=== PATIENT | male | born 1950 | race Hispanic/Latino ===

== ENCOUNTER 2018-02-08 11:30 | Emergency (ER) | payer SELFPAY ==
[2018-02-08 12:17] LABS: Hematocrit 25.3 % (39.6-49.0); MCH 25.2 pg (27.0-35.0); MCV 79.5 fL (80-100); MPV 8.2 fL (7.6-11.3); RBC Red Blood Cell Count 3.18 M/uL (4.33-5.43)
[2018-02-08 12:24] LABS: ALT/SGPT 34 U/L (12-78); AST/SGOT 119 U/L (15-37); Albumin 3.3 g/dL (3.4-5.0); Alkaline Phosphatase 181 U/L (45-117); BUN Blood Urea Nitrogen 4 mg/dL (7-18); Bicarbonate 26 mmol/L (21-32); Bilirubin Direct 0.2 mg/dL (0-0.2); Bilirubin Total 0.4 mg/dL (0.2-1.0); Glucose Level 119 mg/dL (74-106); Lipase 174 U/L (73-393); Potassium 3.3 mmol/L (3.5-5.1); Protein, Total 7.9 g/dL (6.4-8.2); Sodium Level 136 mmol/L (136-145); Troponin (Emerg Dept Use Only) < 0.02 ng/mL (0.0-0.045)
--- NOTE | 2018-02-08 12:33 | RAD REPORT ---
EXAM DESCRIPTION: CT - Head Brain Wo Cont - 02/08/2018 12:13 pm CLINICAL HISTORY: CONFUSED Drowsiness COMPARISON: No comparisons TECHNIQUE: All CT scans are performed using dose optimization technique as appropriate and may inclu de automated exposure control or mA/KV adjustment according to patient size. FINDINGS: No intracranial hemorrhage, hydrocephalus or extra-axial fluid collection.Advanced general ized brain atrophy is present with moderate periventricular and deep white matter chronic microvascul ar ischemic changes.No areas of brain edema or evidence of midline shift. The paranasal sinuses and mastoids are clear. The calvarium is intact. IMPRESSION: No acute intracranial abnormality.
[2018-02-08] MEDS ORDERED: NA CHLORIDE 0.9% 0 ML ONE (12:44)
--- NOTE | 2018-02-08 12:45 | RAD REPORT ---
EXAM DESCRIPTION: CT - Abdomen Pelvis Wo Contrast - 02/08/2018 12:14 pm CLINICAL HISTORY: Abdominal pain. ABD PAIN COMPARISON: No comparisons TECHNIQUE: CT imaging of the abdomen and pelvis was performed without contrast. Solid organ, bowel a nd vascular assessment is limited due to lack of IV and oral contrast. All CT scans are performed using dose optimization technique as appropriate and may include automated exposure control or mA/KV adjustment according to patient size. FINDINGS: The lower lung bates are clear. Mild fatty liver.The spleen, pancreas, adrenal glands are normal. Moderate bilateral hydronephrosis a nd hydroureter. Urinary bladder is distended. No bowel obstruction, free air, free fluid or abscess. Colonic diverticulosis is present. The appendi x is normal. Small fat containing inguinal hernia. The osseous structures are within normal limits. IMPRESSION: Prominent distention of the urinary bladder, moderate hydroureter and hydronephrosis. Fi ndings may indicate bladder outlet obstruction or neurogenic bladder. Colonic diverticulosis. Mild fatty liver. A limited non-contrast examination was performed as detailed.
[2018-02-08 12:56] LABS: Urine Blood NEGATIVE (NEG); Urine Glucose NEGATIVE (NEG); Urine Protein NEGATIVE (NEG); Urine Specific Gravity 1.005 (1.005-1.030); Urine pH 6.5 (5.0-7.0)
[2018-02-08 13:03] LABS: Blood Morphology Comment NOTED (NOT SEEN); Hypochromasia 1+; Platelet Estimate ADEQ; Target Cells 1+
[2018-02-08 13:20] LABS: Barbiturates NEGATIVE (NEGATIVE); Benzodiazepines NEGATIVE (NEGATIVE); Cocaine NEGATIVE (NEGATIVE); METHAMPHETAM NEGATIVE (NEGATIVE); Methadone NEGATIVE (NEGATIVE); Opiates NEGATIVE (NEGATIVE); Phencyclidine NEGATIVE (NEGATIVE); THC Cannibis NEGATIVE (NEGATIVE)
[2018-02-08 13:25] LABS: Urine Bacteria NONE SEEN /HPF (NONE SEEN); Urine Culture Reflex Order NOT NEEDED; Urine RBC NONE SEEN /HPF (NONE SEEN)
[2018-02-08] MEDS ORDERED: NA CHLORIDE 0.9% 1,000 ML with FOLIC ACID 1 MG, THIAMINE HCL 100 MG, MULTIVITAMINS INJ ... IV SCH ×4 (13:45)
--- NOTE | 2018-02-08 15:08 | EKG ---
Test Date: 2018-02-08 Test Time: 11:47:23 Code Enforcement Inspector: WILIAN MEASUREMENT RESULTS: Intervals: Rate: 58 VT: 146 QRSD: 90 QT: 442 QTc: 433 Vilas: P: 60 VT: 146 QRS: 8 T: 26 INTERPRETIVE STATEMENTS: Sinus bradycardia Nonspecific ST and T wave abnormality Abnormal ECG No previous ECG available for comparison Electronically Signed On 02-08-18 15:08:33 CDT by Norm Fuller
--- NOTE | 2018-02-08 15:34 | ER ---
Nurse's Notes [facility] Name: Edward Shin Age: 67 yrs Sex: Male : 1950 Arrival Date: 02/08/2018 Time: 11:34 Bed 26 Private MD: Diagnosis: Alcohol dependence with intoxication Presentation: 02/08 11:34 Presenting complaint: EMS states: Pt stumbled into the library in [place] and the 7 employee's called. He is an alcoholic, has been drinking today and his only complaint is abdominal pain, his mental status is baseline for him. [facility] CT machine is down so we brought him here. Transition of care: patient was not received from another setting of care. Onset of symptoms was February 08, 2018. Risk Assessment: Do you want to hurt yourself or someone else? Patient reports no desire to harm self or others. Initial Sepsis Screen: Does the patient meet any 2 criteria? No. Patient's initial sepsis screen is negative. Does the patient have a suspected source of infection? No. Patient's initial sepsis screen is negative. Care prior to arrival: IV initiated. 20 GA, in the left antecubital area, Glucose check: 200. 11:34 Method Of Arrival: EMS: [place] [facility] 11:34 Acuity: REBECCA 3 jl7 - Immunization history:: Adult Immunizations unknown. - Social history:: Patient uses alcohol, on a daily basis. Smoking status: unknown. - Family history:: not pertinent. - Ebola Screening: : No symptoms or risks identified at this time. - Hospitalizations: : No recent hospitalization is reported. Screenin:15 Abuse screen: Denies threats or abuse. Denies injuries from another. Nutritional kr2 screening: No deficits noted. Tuberculosis screening: No symptoms or risk factors identified. Fall Risk IV access (20 points). Mental Status- Overestimates/Forgets Limitations (15 pts.). Assessment: 12:55 General: Report received from FAY Hatch. . kr2 13:05 General: Appears in no apparent distress. comfortable, Behavior is calm, cooperative. kr2 Pain: Denies pain. Neuro: Level of Consciousness is awake, alert, obeys commands, Oriented to person, situation. Cardiovascular: Capillary refill < 3 seconds in bilateral fingers Patient's skin is warm and dry. Respiratory: Airway is patent Respiratory effort is even, unlabored, Respiratory pattern is regular, symmetrical. GI: Bowel sounds present X 4 quads. Abd is soft and non tender X 4 quads. : Urine is clear. 14:00 Reassessment: Patient appears in no apparent distress at this time. Patient and/or kr2 family updated on plan of care and expected duration. Pain level reassessed. Patient is alert, oriented x 3, equal unlabored respirations, skin warm/dry/pink. Patient denies pain at this time. 15:00 Reassessment: No changes from previously documented assessment. kr 15:16 Reassessment: Spoke with Hever, who is patient's friend. Patient requested that we ss call and ask if "[place]" could come and pick him up. 15:45 Reassessment: Called and spoke with patient's acquaintance at his residence, [place] at . States they will have someone come to pick him up. 16:00 Reassessment: Patient appears in no apparent distress at this time. Patient and/or kr2 family updated on plan of care and expected duration. Pain level reassessed. Patient is alert, oriented x 3, equal unlabored respirations, skin warm/dry/pink. Per Dr. Tee, Banana bag may be discontinued when patient's transportation arrives. Vital Signs: 11:30 BP 122 / 81; Pulse 56; Resp 16 S; Temp 97.6(O); Pulse Ox 98% on R/A; jl7 11:45 BP 115 / 73; Pulse 57; Resp 14 S; Pulse Ox 99% on R/A; jp3 12:00 BP 123 / 82 RA Sitting (auto/reg); Pulse 65; Resp 16 S; Pulse Ox 100% on R/A; jp3 12:49 BP 93 / 76; Pulse 53; Resp 14 S; Pulse Ox 100% on R/A; jl7 14:00 BP 113 / 68 LA (auto/reg); Pulse 56; Resp 12 S; Pulse Ox 99% on R/A; jp3 15:56 BP 117 / 78; Pulse 60; Resp 17; Pulse Ox 99% on R/A; kr2 14:00 Patient asleep when vitals was taken 3 ED Course: 11:34 Patient arrived in ED. jl7 11:37 Yobany Tee MD is Attending Physician. rn 11:38 Triage completed. jl7 11:40 Warm blanket given. Pulse ox on. NIBP on. bus monitor on. jp3 11:40 Bed in low position. Call light in reach. Side rails up X 1. Side rails up X2. jp3 11:45 Maintain EMS IV. Dressing intact. Good blood return noted. Site clean \\T\\ dry. Gauge \\T\\ harry 3 site: 20 -gauge in Left A/C. 11:45 Initial lab(s) drawn, by me, sent to lab. jp3 11:58 EKG done, by er tech. reviewed by Yobany Tee MD. at1 12:02 Arm band placed on right wrist. jl7 12:11 CT completed. Patient tolerated procedure well. Patient moved to CT via stretcher. jg6 Patient moved back from CT. 12:13 CT Head Brain wo Cont In Process Unspecified. EDMS 12:13 CT Abd/Pelvis - Without Cont In Process Unspecified. EDMS 12:37 Tina Sevilla, RN is Primary Nurse. jl7 12:50 Urine collected: clean catch specimen, clear, kalyan colored, Amount Voided: 700mL. jp3 12:58 Urine Microscopic Only Sent. jp3 13:10 Diet tray ordered. jp3 13:20 Diet: Patient given a heart healthy meal tray. Tolerated well. jp3 13:20 Diet tray given. jp3 13:45 Assisted with urinal. jp3 16:06 No provider procedures requiring assistance completed. IV discontinued, intact, kr2 bleeding controlled, No redness/swelling at site. Pressure dressing applied. Administered Medications: Discontinued: Banana Bag - (NS 0.9% 1000 ml, foLIC Acid 1 mg, Thiamine 100 mg, Multivitamin 1 amp) IV at calculated rate once 12:48 Drug: NS 0.9% 500 ml Route: IV; Rate: bolus; Site: left antecubital; jl7 13:30 Follow up: Response: No adverse reaction; IV Status: Completed infusion kr2 14:20 Drug: Banana Bag - (NS 0.9% 1000 ml, foLIC Acid 1 mg, Thiamine 100 mg, Multivitamin 1 dm5 amp) Route: IV; Rate: calculated rate; Site: left antecubital; 16:06 Follow up: Response: No adverse reaction; IV Status: Order to discontinue infusion kr2 Outcome: 15:33 Discharge ordered by . rn 16:07 Discharged to home via wheelchair, with friend. kr2 16:07 Condition: stable 16:07 Discharge instructions given to patient, Instructed on discharge instructions, follow up and referral plans. Demonstrated understanding of instructions, follow-up care. 16:09 Patient left the ED. kr2 Signatures: Dispatcher [employer] EDMS Aixa Mims RN RN dm5 Yobany Tee MD MD rn Smirch, Shelby, RN RN ss Mellissa Jimenez, mentally impaired teacher EKG Tat1 Tina Sevilla RN RN jl7 Shannon Ferreira RN RN kr2 Franklin Farfan jp3 Nury Granda jg6 Corrections: (The following items were deleted from the chart) 12:05 12:02 BP 115 / 73; Pulse 57bpm; Resp 14bpm; Spontaneous; Pulse Ox 99% RA; jl7 jp3 14:21 14:20 Banana Bag - (Multivitamin 1 amp, NS 0.9% 1000 ml, Thiamine 100 mg, foLIC Acid 1 dm5 mg) IV at calculated rate in right antecubital dm5
--- NOTE | 2018-02-08 15:35 | EDPHYS ---
Physician Documentation [facility] Name: Edward Shin Age: 67 yrs Sex: Male : 1950 Arrival Date: 02/08/2018 Time: 11:34 Bed 26 Private MD: ED Physician Yobany Tee HPI: 02/08 12:17 This 67 yrs old Male presents to ER via EMS with complaints of stumbling, abd rn pain. 12:17 Picked up by EMS at [place], he is a known alcoholic, stumbled into library, reports rn drank 2 beers, no trauma, thinks was at home, brought in by ems because when questioned reported abd pain, no vomiting/diarrhea. . Onset: The symptoms/episode began/occurred at an unknown time. Severity of symptoms: At their worst the symptoms were mild in the emergency department the symptoms have improved. The patient has experienced similar episodes in the past. The patient has not recently seen a physician. - Immunization history:: Adult Immunizations unknown. - Social history:: Patient uses alcohol, on a daily basis. Smoking status: unknown. - Family history:: not pertinent. - Ebola Screening: : No symptoms or risks identified at this time. - Hospitalizations: : No recent hospitalization is reported. ROS: 12:17 Constitutional: Negative for fever, chills, and weight loss, Eyes: Negative for injury, rn pain, redness, and discharge, Neck: Negative for injury, pain, and swelling, Cardiovascular: Negative for chest pain, palpitations, and edema, Respiratory: Negative for shortness of breath, cough, wheezing, and pleuritic chest pain, Abdomen/GI: + abd pain, no nausea/vomiting/diarrhea MS/Extremity: Negative for injury and deformity, Skin: Negative for injury, rash, and discoloration, Neuro: Negative for headache, weakness, numbness, tingling, and seizure. Exam: 12:17 Constitutional: This is a well developed, well nourished patient who is somnolent, rn speaking full sentences, follows commands. Head/Face: Normocephalic, atraumatic. Eyes: Pupils equal round and reactive to light, extra-ocular motions intact. Periorbital areas with no swelling, redness, or edema. + evidence of cataracts Neck: Trachea midline, no thyromegaly or masses palpated, and no cervical lymphadenopathy. Supple, full range of motion without nuchal rigidity, or vertebral point tenderness. No Meningismus. Cardiovascular: Regular rate and rhythm with a normal S1 and S2. No gallops, murmurs, or rubs. Normal PMI, no JVD. No pulse deficits. Respiratory: Lungs have equal breath sounds bilaterally, clear to auscultation and percussion. No rales, rhonchi or wheezes noted. No increased work of breathing, no retractions or nasal flaring. Abdomen/GI: Soft, non-tender, No distension or tympany. No guarding or rebound. No evidence of tenderness throughout. MS/ Extremity: Pulses equal, no cyanosis. Neurovascular intact. Full, normal range of motion. Equal circumference. Neuro: somnolent, GCS 15, oriented to person, and situation. Cranial nerves II-XII grossly intact. Motor strength 5/5 in all extremities. Sensory grossly intact. Cerebellar exam normal. Vital Signs: 11:30 BP 122 / 81; Pulse 56; Resp 16 S; Temp 97.6(O); Pulse Ox 98% on R/A; jl7 11:45 BP 115 / 73; Pulse 57; Resp 14 S; Pulse Ox 99% on R/A; jp3 12:00 BP 123 / 82 RA Sitting (auto/reg); Pulse 65; Resp 16 S; Pulse Ox 100% on R/A; jp3 12:49 BP 93 / 76; Pulse 53; Resp 14 S; Pulse Ox 100% on R/A; jl7 14:00 BP 113 / 68 LA (auto/reg); Pulse 56; Resp 12 S; Pulse Ox 99% on R/A; jp3 15:56 BP 117 / 78; Pulse 60; Resp 17; Pulse Ox 99% on R/A; kr2 14:00 Patient asleep when vitals was taken jp3 MDM: 11:37 Patient medically screened. rn 13:18 ED course: Pt able to urinate on his own, urinated atleast 700cc without need for rn wei. Comfortable, denies pain, asking for food. Will let him sober and dc home in care of family/friend. . 15:28 Differential Diagnosis altered mental status, etoh intoxication. Data reviewed: vital rn signs, nurses notes, lab test result(s), EKG, radiologic studies, CT scan, and as a result, I will discharge patient. Counseling: I had a detailed discussion with the patient and/or guardian regarding: the historical points, exam findings, and any diagnostic results supporting the discharge/admit diagnosis, lab results, radiology results, the need for outpatient follow up, to return to the emergency department if symptoms worsen or persist or if there are any questions or concerns that arise at home. Response to treatment: the patient's symptoms have markedly improved after treatment, and as a result, I will discharge patient. Special discussion: I discussed with the patient/guardian in detail that at this point there is no indication for admission to the hospital. It is understood, however, that if the symptoms persist or worsen the patient needs to return immediately for re-evaluation. Based on the history and exam findings, there is no indication for further emergent testing or inpatient evaluation. I discussed with the patient/guardian the need to see the primary care provider for further evaluation of the symptoms. ED course: Pt sobering, we called for a ride, one of his friends is going to pick him up, advised to cut down on drinking.. 02/08 11:43 Order name: Basic Metabolic Panel; Complete Time: 12:50 rn 02/08 11:43 Order name: CBC with Diff; Complete Time: 13:30 rn 02/08 11:43 Order name: Hepatic Function; Complete Time: 12:50 rn 02/08 11:43 Order name: Lipase; Complete Time: 12:50 rn 02/08 11:43 Order name: Urine Microscopic Only; Complete Time: 13:30 rn 02/08 11:43 Order name: ETOH Level; Complete Time: 12:50 rn 02/08 11:43 Order name: CT Head Brain wo Cont; Complete Time: 12:50 rn 02/08 11:43 Order name: Urine Drug Screen; Complete Time: 13:30 rn 02/08 11:43 Order name: CT Abd/Pelvis - Without Cont; Complete Time: 12:50 rn 02/08 11:43 Order name: Troponin (emerg Dept Use Only); Complete Time: 12:50 rn 02/08 12:19 Order name: Manual Differential; Complete Time: 13:30 EDMS 02/08 12:47 Order name: Urine Dipstick--Ancillary (enter results); Complete Time: 13:30 eb 02/08 11:43 Order name: IV Saline Lock; Complete Time: 12:25 rn 02/08 11:43 Order name: Labs collected and sent; Complete Time: 12:25 rn 02/08 11:43 Order name: Urine Dipstick-Ancillary (obtain specimen); Complete Time: 12:51 rn 02/08 11:43 Order name: EKG; Complete Time: 11:43 rn 02/08 11:43 Order name: EKG - Nurse/Tech; Complete Time: 12:24 rn 02/08 12:52 Order name: Diet Regular; Complete Time: 12:55 jl7 Administered Medications: Discontinued: Banana Bag - (NS 0.9% 1000 ml, foLIC Acid 1 mg, Thiamine 100 mg, Multivitamin 1 amp) IV at calculated rate once 12:48 Drug: NS 0.9% 500 ml Route: IV; Rate: bolus; Site: left antecubital; jl7 13:30 Follow up: Response: No adverse reaction; IV Status: Completed infusion kr2 14:20 Drug: Banana Bag - (NS 0.9% 1000 ml, foLIC Acid 1 mg, Thiamine 100 mg, Multivitamin 1 dm5 amp) Route: IV; Rate: calculated rate; Site: left antecubital; 16:06 Follow up: Response: No adverse reaction; IV Status: Order to discontinue infusion kr2 Disposition: 02/08/18 15:33 Discharged to Home. Impression: Alcohol dependence with intoxication. - Condition is Stable. - Discharge Instructions: Alcohol Intoxication. - Medication Reconciliation Form, Thank You Letter, Antibiotic Education, Prescription Opioid Use form. - Follow up: Private Physician; When: As needed; Reason: Recheck today's complaints, Re-evaluation by your physician. - Problem is new. - Symptoms have improved. Signatures: Dispatcher [employer] [facility] Aixa Mims RN RN dm5 Yobany Tee MD MD rn Leal, Jahala, RN RN jl7 Shannon Ferreira RN RN kr2 Corrections: (The following items were deleted from the chart) 16:09 15:33 02/08/2018 15:33 Discharged to Home. Impression: Alcohol dependence with kr2 intoxication. Condition is Stable. Forms are Medication Reconciliation Form, Thank You Letter, Antibiotic Education, Prescription Opioid Use. Follow up: Private Physician; When: As needed; Reason: Recheck today's complaints, Re-evaluation by your physician. Problem is new. Symptoms have improved. rn
== END 2018-02-08 16:09 | disposition home or self-care (01) ==
LOC: EDBD 11:30 → ER 11:30
DX: F10.229 Alcohol dependence with intoxication, unspecified (principal)
CPT/HCPCS: 36415; 70450; 74176; 80048; 80076; 80307; 80320; 81003; 81015; 83690; 84484; 85025; 93005; 96361; 96365; 96366; 99285; J3411; J7030